=== PATIENT | female | born 1940 ===

== ENCOUNTER → 2021-12-15 14:54 | Outpatient (BNVA) | payer MEDICARE, SELFPAY | PROVIDERS: Family Provider Internal Medicine; PCP Family Medicine; Visit Provider Family Medicine | DX: R17 Unspecified jaundice (principal); E50.9 Vitamin A deficiency, unspecified; I25.10 Atherosclerotic heart disease of native coronary artery without angina pectoris; I10 Essential (primary) hypertension | CPT/HCPCS: 80053; 82306; 83036; 84443 ==

== ENCOUNTER → 2022-01-03 13:54 | Outpatient (BNVA) | payer MEDICARE, SELFPAY | PROVIDERS: Family Provider Internal Medicine; PCP Family Medicine; Visit Provider Internal Medicine Cardiovascular Disease | DX: I25.10 Atherosclerotic heart disease of native coronary artery without angina pectoris (principal); I10 Essential (primary) hypertension; R00.2 Palpitations; E78.00 Pure hypercholesterolemia, unspecified | CPT/HCPCS: 99214 ==

== ENCOUNTER → 2022-04-19 09:24 | Outpatient (BNVA) | payer MEDICARE, SELFPAY | PROVIDERS: Family Provider Internal Medicine; PCP Family Medicine; Visit Provider Family Medicine | DX: E78.00 Pure hypercholesterolemia, unspecified (principal); I10 Essential (primary) hypertension; I25.10 Atherosclerotic heart disease of native coronary artery without angina pectoris; E11.9 Type 2 diabetes mellitus without complications; N39.0 Urinary tract infection, site not specified; R30.0 Dysuria | CPT/HCPCS: 80053; 80061; 81000; 83036; 84443; 85025; 87086 ==

== ENCOUNTER → 2022-07-17 13:31 | Outpatient (BNVA) | payer MEDICARE, SELFPAY | PROVIDERS: Family Provider Internal Medicine; PCP Family Medicine; Visit Provider Internal Medicine Cardiovascular Disease | DX: I25.10 Atherosclerotic heart disease of native coronary artery without angina pectoris (principal); Z95.1 Presence of aortocoronary bypass graft; E78.00 Pure hypercholesterolemia, unspecified; I10 Essential (primary) hypertension; E11.9 Type 2 diabetes mellitus without complications; Z79.84 Long term (current) use of oral hypoglycemic drugs; I44.30 Unspecified atrioventricular block | CPT/HCPCS: 99214 ==

== ENCOUNTER → 2022-08-10 10:31 | Outpatient (BNVA) | payer MEDICARE, SELFPAY | PROVIDERS: Family Provider Internal Medicine; PCP Family Medicine; Visit Provider Family Medicine | DX: E11.9 Type 2 diabetes mellitus without complications (principal); E78.00 Pure hypercholesterolemia, unspecified; I10 Essential (primary) hypertension | CPT/HCPCS: 80053; 80061; 83036; 84443 ==

== ENCOUNTER → 2022-09-20 09:37 | Outpatient (BNVA) | payer MEDICARE, SELFPAY | PROVIDERS: Family Provider Internal Medicine; PCP Family Medicine; Visit Provider Family Medicine | DX: E80.6 Other disorders of bilirubin metabolism (principal); E11.9 Type 2 diabetes mellitus without complications; I10 Essential (primary) hypertension; E55.9 Vitamin D deficiency, unspecified; E78.00 Pure hypercholesterolemia, unspecified; I25.10 Atherosclerotic heart disease of native coronary artery without angina pectoris; Z79.899 Other long term (current) drug therapy | CPT/HCPCS: 80076; 82306 ==

== ENCOUNTER 2022-10-23 14:59 | Outpatient (CLI) | payer MEDICARE, SELFPAY ==
--- NOTE | 2022-10-23 15:15 | US_ITS ---
WS: [id number] ABDOMINAL ULTRASOUND LIMITED REASON FOR EXAM: elevated bilirubin COMPARISON: None available. ORDER DATE: 10/23/2022 3:32 PM TECHNIQUE: Grayscale and Doppler ultrasound examination of the abdomen. FINDINGS: Pancreas: Unremarkable Abdominal aorta and IVC: Unremarkable Liver: Liver measures 15.5 cm in length. Normal echotexture with no evidence of intrahepatic or extra hepatic bile duct dilatation Gallbladder: Gallbladder wall thickness measures 0.2 mm. Somewhat dilated appearing gallbladder witho ut evidence of calculi Right kidney: Right kidney measures 10.2 cm x 4.6 cm x 4.4 cm. Right kidney cortex measures 1.0 cm. N o evidence of calculi or hydronephrosis Portal vein 8 mm in diameter with centripetal flow US/US liver [id number] IMPRESSION: No acute abnormality
== END 2022-10-23 15:00 | disposition home or self-care (01) ==
LOC: RAD 15:00
PROVIDERS: Family Provider Internal Medicine; PCP Family Medicine; Visit Provider Family Medicine
DX: E80.6 Other disorders of bilirubin metabolism (principal)
CPT/HCPCS: 76705

== ENCOUNTER → 2023-03-29 09:21 | Outpatient (BNVA) | payer MEDICARE, SELFPAY | PROVIDERS: Family Provider Internal Medicine; PCP Family Medicine; Visit Provider Family Medicine | DX: E11.9 Type 2 diabetes mellitus without complications (principal); E78.00 Pure hypercholesterolemia, unspecified; I10 Essential (primary) hypertension; I25.10 Atherosclerotic heart disease of native coronary artery without angina pectoris | CPT/HCPCS: 80053; 80061; 83036; 84443 ==

== ENCOUNTER 2023-08-12 13:22 | Emergency (ER) | payer MEDICARE, OTHER, SELFPAY ==
[2023-08-12 13:28] VITALS: BP 137/83; PULSE 96; RESP 16; TEMP 36.7; O2SAT 98; BMI 22.8
--- NOTE | 2023-08-12 13:37 | XRR_ITS ---
PROCEDURE INFORMATION: Exam: XR Chest Exam date and time: 08/12/2023 1:46 PM Age: 82 years old Clinical indication: Other: Weakenss; Prior surgery; Surgery date: 6+ months; Patient HX: Weakness; Dizzy spells; HTN; Diabetes; HX thyroid & cervical CA; Cabg 2005 TECHNIQUE: Imaging protocol: Radiologic exam of the chest. Views: 1 view. COMPARISON: CR XR chest 1V [id number] 07/15/2018 3:04 PM FINDINGS: Lungs: Unremarkable. No consolidation. Pleural spaces: Unremarkable. No pleural effusion. No pneumothorax. Heart/Mediastinum: Prior CABG. Bones/joints: Unremarkable. XR/XR chest 1V portable [id number] IMPRESSION: No acute findings.
--- NOTE | 2023-08-12 13:58 | CTR_ITS ---
PROCEDURE INFORMATION: Exam: CT Head Without Contrast Exam date and time: 08/12/2023 2:07 PM Age: 82 years old Clinical indication: Dizziness TECHNIQUE: Imaging protocol: Computed tomography of the head without contrast. Radiation optimization: All CT scans at this facility use at least one of these dose optimization techniques: automated exposure control; mA and/or kV adjustment per patient size (includes targeted exams where dose is matched to clinical indication); or iterative reconstruction. COMPARISON: CT head wo con* [id number] 07/15/2018 3:10 PM RADIATION DOSE METRICS: Total DLP (mGy-cm): 959.78 FINDINGS: Brain: Normal. No hemorrhage. Unremarkable white matter. No mass effect. Cerebral ventricles: No ventriculomegaly. Mild ventricular prominence proportionate to the degree of atrophy observed. Paranasal sinuses: Visualized sinuses are unremarkable. No fluid levels. Mastoid air cells: Visualized mastoid air cells are well aerated. Bones/joints: Unremarkable. No acute fracture. Soft tissues: Unremarkable. CT/CT head wo con* [id number] IMPRESSION: No acute intracranial abnormality.
--- NOTE | 2023-08-12 13:58 | ED_ITS ---
HPI - Dizziness 2 General: Chief Complaint: Dizziness Stated Complaint: dizziness Time Seen by Provider: 08/12/23 13:57 History of Present Illness: HPI Narrative: 82-year-old female presents emerged depa rtment stating she has been sick for quite some time. She states she is intermittently had loss of bladder states she is felt dizzy and lightheaded and had increased fatigue and weakness. She states that her dizziness does appear to be when she turns her head or attempts to stand. Endorses dysuria. Denies known injury or trauma. Review of Systems 2 General: Reports: 10 or more systems reviewed and unremarkable except in HPI and below : Reports: dysuria, urinary frequency and urinary urgency PFSH ED 2 PFSH: Medical History Atherosclerosis of coronary artery of [place] heart without angina pectoris Benign essential HTN CAD (coronary artery disease) Carotid stenosis COPD (chronic obstructive pulmonary disease) Diabetes Hypercholesterolemia Hyperlipidemia Hypertension Intermittent palpitations Recurrent syncope Thyroid cancer Surgical History H/O neck surgery History of tonsillectomy Hx of CABG Previous back surgery Family History Mother CAD (coronary artery disease) Dementia Father CAD (coronary artery disease) Brother CAD (coronary artery disease) Cancer Sister Cancer Denies family history of Diabetes Clotting disorder Hyperlipidemia Psychiatric illness Chronic kidney disease (CKD) Suicide Anesthesia complication Bleeding disorder Family history of premature coronary artery disease Lung disease Hypertension Stroke Social History Smoking and tobacco/nicotine status: never used tobacco/nicotine Alcohol intake: never Substance/Drug Use: never Physical Exam 2 Narrative: EXAM NARRATIVE: Constitutional: the patient appears well nourished and with normal development. Vital signs reviewed as documented. HENMT: Normocephalic, atraumatic. Extermal ears with normal appearance without drainage. Nose without drainage, normal appearance. Mucus membranes moist. Neck is supple, No jugular venous distension, trachea is midline, no appreciable carotid bruits. No lymphadenopathy. No meningeal signs. Flexion, extension and lateral rotation is without pain. Eyes: Pupils are equal, round, reactive to light and accommodation. No scleral icterus. Extra-ocular movement are intact. Thorax is symmetrical and with equal rise and fall with respirations. Resp: Lungs are clear to auscultation. No wheezes, rales, crackles or ronchi at present. Cardio: Regular rate and rhythm. Positive S1, S2. No appreciable murmurs, rubs or gallops. GI: Abdominal exam reveals normal bowel sounds to all quadrants. No organomegaly. No obvious palpable masses noted. No hepatomegally appreciated. Soft, nontender to palpation. Extremity: Extremities are non-edematous and both femoral and pedal pulses are 2+ and equal bilaterally. Moves all extremities well, sensation in all extremities. Neuro: Alert and oriented x4, person, place, time and situation. Cranial nerves II through XII are grossly intact, there is no focal neurological deficits that I can appreciate at present. Motor strength in the upper and lower extremities are equal and bilateral 5/5. Psych: Cooperative, calm, normal thought process, appropriate judgment. Skin: No lesions, rashes. No gross abnormalities noted. Back: Symmetrical, no obvious deformity, No CVA tenderness Course 2 Vital Signs: Vital signs: Vital Signs Temperature 98.0 F 08/12/23 13:28 Pulse Rate 96 08/12/23 13:28 Respiratory Rate 16 08/12/23 13:28 Blood Pressure 137/83 08/12/23 13:28 Pulse Oximetry 98 08/12/23 13:28 Oxygen Delivery Me thod Room Air 08/12/23 13:28 MDM - Dizziness Medical Decision Making Physical exam completed document, will obtain a CBC, CMP, CT scan of her head provide her Antivert as well as Macrobid for her urinary tract infection. Will obtain cardiac enzymes as well as a twelve-lead EKG and chest x-ray. Differential diagnosis includes dehydration, UTI, benign positional vertigo, orthostatic hypotension, medication side effect, Medical Records I reviewed the patient's medical records. Lab Data I reviewed the patient's lab results. 08/12/23 14:16 08/12/23 14:16 Radiology Impressions Chest X-Ray 08/12/23 13:37 IMPRESSION: No acute findings. Head CT 08/12/23 13:58 IMPRESSION: No acute intracranial abnormality. Laboratory Results WBC 6.06 10^3/uL (3.29-11.43) 08/12/23 14:16 RBC 4.67 10^6/uL (3.85-5.65) 08/12/23 14:16 Hgb 13.60 g/dL (11.27-16.99) 08/12/23 14:16 Hct 40.1 % (36-47) 08/12/23 14:16 MCV 85.9 fl (85-98) 08/12/23 14:16 MCH 29.1 pg (27-33) 08/12/23 14:16 MCHC 33.9 g/dL (30-55) 08/12/23 14:16 RDW 13.0 % (12.1-15.1) 08/12/23 14:16 Plt Count 187 10^3/cmm (157-399) 08/12/23 14:16 MPV 9.0 fL (7.4-10.4) 08/12/23 14:16 Neut % (Auto) 72.3 % 08/12/23 14:16 Lymph % (Auto) 20.5 % 08/12/23 14:16 [place] % (Auto) 4.1 % 08/12/23 14:16 Eos % (Auto) 2.1 % 08/12/23 14:16 Baso % (Auto) 0.7 % 08/12/23 14:16 Neut # (Auto) 4.38 10^3/uL (1.8-7.7) 08/12/23 14:16 Lymph # (Auto) 1.2 10^3/uL (0.8-4.8) 08/12/23 14:16 [place] # (Auto) 0.3 10^3/uL (0.2-0.9) 08/12/23 14:16 Eos # (Auto) 0.1 10^3/uL (0.0-0.8) 08/12/23 14:16 Baso # (Auto) 0.0 10^3/uL (0.0-0.1) 08/12/23 14:16 Nucleated RBC % (auto) 0 % 08/12/23 14:16 Nucleated RBCs # 0.0 /100WBC 08/12/23 14:16 Sodium 133 mmol/L (136-145) L 08/12/23 14:16 Potassium 4.0 mmol/L (3.5-5.1) 08/12/23 14:16 Chloride 97 mmol/L (98-107) L 08/12/23 14:16 Carbon Dioxide 27 mmol/L (22-29) 08/12/23 14:16 Anion Gap 13.0 (5-19) 08/12/23 14:16 BUN 6 mg/dL (8-23) L 08/12/23 14:16 Creatinine 0.6 mg/dL (0.5-0.9) 08/12/23 14:16 GFR Calculation Not Reportable 08/12/23 14:16 Glucose 158 mg/dL (65-115) H 08/12/23 14:16 Calculated Osmolality 277 mOsm/kg (285-295) L 08/12/23 14:16 Calcium 10.8 mg/dL (8.5-10.5) H 08/12/23 14:16 Total Bilirubin 2.6 mg/dL (0.15-1.2) H 08/12/23 14:16 AST 24 U/L (0-32) 08/12/23 14:16 ALT 18 U/L (0-33) 08/12/23 14:16 Alkaline Phosphatase 83 U/L (35-105) 08/12/23 14:16 Total Protein 7.0 g/dL (6.6-8.7) 08/12/23 14:16 Albumin 4.0 g/dL (3.5-5.2) 08/12/23 14:16 Globulin 3.0 g/dL (1.3-4.6) 08/12/23 14:16 Urine Color Yellow (Yellow) 08/12/23 14:28 Urine Appearance Sl hazy (CLEAR) A 08/12/23 14:28 Urine pH 6 (5-7) 08/12/23 14:28 Ur Specific Jakin 1.010 (1.005-1.030) 08/12/23 14:28 Urine Protein Neg (Negative) 08/12/23 14:28 Urine Glucose (UA) Norm (Normal) 08/12/23 14:28 Urine Ketones Negative (Negative) 08/12/23 14:28 Urine Blood Neg (Negative) 08/12/23 14:28 Urine Nitrate Positive (Negative) H 08/12/23 14:28 Urine Bilirubin Neg (Negative) 08/12/23 14:28 Urine Urobilinogen Norm mg/dL (Negative) 08/12/23 14:28 Ur Leukocyte Esterase 2+ (Negative) H 08/12/23 14:28 Urine RBC None /hpf (0-2) 08/12/23 14:28 Urine WBC 25-40 /hpf (0-5) H 08/12/23 14:28 Ur Squamous Epith Cells 5-10 /hpf (0-5) H 08/12/23 14:28 Amorphous Sediment Not Reportable 08/12/23 14:28 Urine Bacteria 2+ /hpf (NONE) H 08/12/23 14:28 All radiology interpretation(s) finalized by discharge EKG Data EKG 1: Interpretation: Twelve-lead EKG obtained at 1421 and reviewed at 1424 demonstrates first-degree AV block with an incomplete right bundle branch block, ventricular rate of 80 bpm, MT interval 319, QRS duration 98, QT 397, QTc 434. There is no ST elevation or depression to demonstrate acute ischemia or infarction at present. Discharge Plan Discharge Patient Disposition: Home Clinical Impression: Postural dizziness with presyncope, Acute UTI Condition: Stable Prescriptions: New nitrofurantoin monohyd/m-cryst [Macrobid] 100 mg capsule 100 mg PO Q12H 7 Days Qty: 14 0RF Rx Instructions: must administer with a meal/food No Action magnesium oxide 400 mg (241.3 mg magnesium) tablet 400 mg PO BEDTIME cholecalciferol (vitamin D3) 2,000 unit tablet 2,000 unit PO QAM aspirin [Adult Low Dose Aspirin] 81 mg tablet,delayed release (DR/EC) 81 mg PO BEDTIME metformin 500 mg tablet 500 mg PO BEDTIME levothyroxine 137 mcg tablet 137 mcg PO QAM atorvastatin 80 mg tablet 80 mg PO BEDTIME clopidogrel 75 mg tablet 75 mg PO QAM amlodipine 5 mg tablet 5 mg PO QAM losartan 100 mg tablet 100 mg PO BEDTIME Discharge Orders: Discharge ED (Routine); Ordered 08/12/23 Ordered By: Jose Miguel Boone Referrals: Rich Bowman MD [Primary Care Provider] - Discharge Diet: Advance as tolerated Discharge Activity: Resume usual activity Patient Instructions: Opioid Safety, Pain Management Activity Restrictions/Additional Instructions: Activity Restrictions/Additional Instructions: Thank you for choosing [facility] for your healthcare needs today. Please realize that you were seen in the Emergency Department and that we are providing you with an emergency medical screening exam and this may not be a complete and all inclusive of all the testing and or medical work-up that you may need to determine your ailment or severity of your illness. It is very important that you follow-up as instructed with your Primary care provider or Specialist for additional evaluation and to discuss your medical treatment plan. You may return to the Emergency Department should you have concerns or if your condition changes or worsens in any way. Coding Level of Care Code ED [facility]idential Lawn Specialist for Onofre Lopez
[2023-08-12] MEDS: meclizine 25 mg tablet PO (14:13)
--- NOTE | 2023-08-12 14:21 | ECG_ITS ---
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 Measurements Intervals [place] Rate: 80 P: 54 CO: 319 QRS: -38 QRSD: 98 T: 71 QT: 397 QTc: 461 Interpretive Statements SINUS RHYTHM WITH FIRST DEGREE AV BLOCK LEFT AXIS DEVIATION [QRS AXIS < -30] INCOMPLETE RIGHT BUNDLE BRANCH BLOCK [90+ ms QRS DURATION, TERMINAL R IN V1/V2, 40+ ms S IN I/aVL/V4/V5/V6] ANTEROSEPTAL MYOCARDIAL INFARCTION , PROBABLY OLD [40+ ms Q WAVE IN V1-V4] Compared to ECG 07/15/2018 23:33:38 Incomplete right bundle-branch block now present Myocardial infarct finding still present Electronically Signed On 08-12-2023 16:22:58 DIRECTOR OF CARDIAC CATH LAB by Curt Ibarra M.D. [email or web address]
[2023-08-12 14:25] LABS: Basophils % 0.7 %; Eosinophils # 0.1 10^3/uL (0.0-0.8); Eosinophils % 2.1 %; Hematocrit 40.1 % (36-47); Lymphocytes # 1.2 10^3/uL (0.8-4.8); Lymphocytes % 20.5 %; Mean Corpuscular HGB Conc 33.9 g/dL (30-55); Mean Corpuscular Hemoglobin 29.1 pg (27-33); Mean Corpuscular Volume 85.9 fl (85-98); Monocytes # 0.3 10^3/uL (0.2-0.9); Monocytes % 4.1 %; Neutrophils # 4.38 10^3/uL (1.8-7.7); Neutrophils % 72.3 %; Nucleated Red Blood Cells % 0 %; Platelet Count 187 10^3/cmm (157-399); Red Blood Count 4.67 10^6/uL (3.85-5.65); White Blood Count 6.06 10^3/uL (3.29-11.43)
--- NOTE | 2023-08-12 14:26 | PC.PHAR ---
pt states she takes care of her own medications-pt states she takes metformin 500mg hs-states she had a build up called [facility] wp states they have never filled metformin for the pt
[2023-08-12 14:45] LABS: Alanine Aminotransferase 18 U/L (0-33); Alkaline Phosphatase 83 U/L (35-105); Aspartate Amino Transferase 24 U/L (0-32); Blood Urea Nitrogen 6 mg/dL (8-23); Calcium 10.8 mg/dL (8.5-10.5); Carbon Dioxide 27 mmol/L (22-29); Chloride 97 mmol/L (98-107); Glucose 158 mg/dL (65-115); Osmolality Calculated 277 mOsm/kg (285-295); Sodium 133 mmol/L (136-145); Total Bilirubin 2.6 mg/dL (0.15-1.2)
[2023-08-12 14:50] LABS: Bilirubin Urine Neg (Negative); Blood Urine Neg (Negative); Glucose Urine UA Norm (Normal); Ketones Urine Negative (Negative); Nitrate Urine Positive (Negative); Protein Urine Neg (Negative); Urine Appearance SL Hazy (CLEAR); Urine Color Yellow (Yellow); pH Urine 6 (5-7)
[2023-08-12 14:51] LABS: Add Urine Culture? Yes; Add Urine Microscopic? YES; Bacteria Urine 2+ /hpf; Leukocyte Esterase Urine 2+ (Negative); Urobilinogen Urine Norm (Negative); WBC Urine 25-40 /hpf (0-5)
[2023-08-12] MEDS: nitrofurantoin SR (BID) 100 mg Capsule PO (15:05)
== END 2023-08-12 16:06 | disposition home or self-care (01) ==
PROVIDERS: Emergency Medicine; Emergency Provider Internal Medicine; PCP Family Medicine
DX: R55 Syncope and collapse (principal); R42 Dizziness and giddiness; N39.0 Urinary tract infection, site not specified; Z79.02 Long term (current) use of antithrombotics/antiplatelets; Z79.82 Long term (current) use of aspirin; Z79.84 Long term (current) use of oral hypoglycemic drugs; Z95.1 Presence of aortocoronary bypass graft; I25.10 Atherosclerotic heart disease of native coronary artery without angina pectoris; I10 Essential (primary) hypertension; J44.9 Chronic obstructive pulmonary disease, unspecified; E11.9 Type 2 diabetes mellitus without complications; E78.5 Hyperlipidemia, unspecified; Z85.850 Personal history of malignant neoplasm of thyroid
CPT/HCPCS: 36415; 70450; 71045; 80053; 81001; 85025; 87077; 87086; 87186; 93005; 99285; J8597

== ENCOUNTER → 2023-12-25 10:12 | Outpatient (BNVA) | payer MEDICARE, OTHER, SELFPAY | PROVIDERS: PCP Family Medicine; Visit Provider Family Medicine | DX: I10 Essential (primary) hypertension (principal); I25.10 Atherosclerotic heart disease of native coronary artery without angina pectoris; E11.9 Type 2 diabetes mellitus without complications; E78.00 Pure hypercholesterolemia, unspecified | CPT/HCPCS: 80053; 80061; 83036; 84443; 85025 ==

== ENCOUNTER → 2023-12-27 14:16 | Outpatient (BNVA) | payer MEDICARE, OTHER, SELFPAY | PROVIDERS: PCP Family Medicine; Visit Provider Internal Medicine Cardiovascular Disease | DX: I25.10 Atherosclerotic heart disease of native coronary artery without angina pectoris (principal); I10 Essential (primary) hypertension; E78.00 Pure hypercholesterolemia, unspecified; E11.9 Type 2 diabetes mellitus without complications; Z79.84 Long term (current) use of oral hypoglycemic drugs | CPT/HCPCS: 99214 ==

== ENCOUNTER → 2024-06-13 11:49 | Outpatient (BNVA) | payer MEDICARE, OTHER, SELFPAY | PROVIDERS: PCP Family Medicine | DX: R39.9 Unspecified symptoms and signs involving the genitourinary system (principal) | CPT/HCPCS: 81000; 87086 ==

== ENCOUNTER → 2024-06-24 10:38 | Outpatient (BNVA) | payer MEDICARE, OTHER, SELFPAY | PROVIDERS: PCP Family Medicine; Visit Provider Family Medicine | DX: I10 Essential (primary) hypertension (principal); I25.10 Atherosclerotic heart disease of native coronary artery without angina pectoris; E78.00 Pure hypercholesterolemia, unspecified; E11.9 Type 2 diabetes mellitus without complications | CPT/HCPCS: 80053; 80061; 83036; 84443; 85025 ==

== ENCOUNTER 2024-09-02 11:02 | Outpatient (CLI) | payer MEDICARE, OTHER, SELFPAY ==
--- NOTE | 2024-09-02 11:07 | XR_ITS ---
WS: [id number] Exam: XR KUB [id number] Date/Time of Exam: 09/02/2024 11:23 AM Reason For Exam: constipation/ RUQ and RLQ abd pain No bowel obstruction or free air. Scattered gas in both large and small bowel loops suggesting mild i leus. Moderate amount retained stool in the large bowel. No sign of organ enlargement. Surgical clips in the upper LEFT quadrant of the abdomen. Degenerative changes of the lumbar spine and hips. XR/XR KUB [id number] IMPRESSION: 1. Mild ileus. 2. Moderate amount retained stool in the colon.
== END 2024-09-02 11:03 | disposition home or self-care (01) ==
LOC: RAD 11:03
PROVIDERS: PCP Family Medicine; Visit Provider Family Medicine
DX: R10.9 Unspecified abdominal pain (principal); K56.7 Ileus, unspecified; K59.00 Constipation, unspecified; M47.9 Spondylosis, unspecified
CPT/HCPCS: 74018

== ENCOUNTER → 2024-11-17 15:37 | Outpatient (BNVA) | payer MEDICARE, OTHER, SELFPAY | PROVIDERS: PCP Family Medicine; Visit Provider Internal Medicine Cardiovascular Disease | DX: I25.10 Atherosclerotic heart disease of native coronary artery without angina pectoris (principal); I10 Essential (primary) hypertension; E78.00 Pure hypercholesterolemia, unspecified; E11.9 Type 2 diabetes mellitus without complications; Z79.84 Long term (current) use of oral hypoglycemic drugs; R00.2 Palpitations | CPT/HCPCS: 99214 ==

== ENCOUNTER → 2025-01-08 08:02 | Outpatient (BNVA) | payer MEDICARE, OTHER, SELFPAY | PROVIDERS: PCP Family Medicine; Visit Provider Family Medicine | DX: I10 Essential (primary) hypertension (principal); E11.9 Type 2 diabetes mellitus without complications; I25.10 Atherosclerotic heart disease of native coronary artery without angina pectoris; E78.00 Pure hypercholesterolemia, unspecified; E55.9 Vitamin D deficiency, unspecified | CPT/HCPCS: 80053; 80061; 82306; 82607; 83036; 83880; 84443; 85025; 86140 ==

== ENCOUNTER → 2025-01-09 08:21 | Outpatient (BNVA) | payer MEDICARE, OTHER, SELFPAY | PROVIDERS: PCP Family Medicine; Visit Provider Family Medicine | DX: R30.0 Dysuria (principal) | CPT/HCPCS: 81000; 87086 ==

== ENCOUNTER → 2025-02-19 15:13 | Outpatient (BNVA) | payer MEDICARE, OTHER, SELFPAY | PROVIDERS: PCP Family Medicine; Visit Provider Family Medicine | DX: I10 Essential (primary) hypertension (principal); C73 Malignant neoplasm of thyroid gland; E80.6 Other disorders of bilirubin metabolism; E83.52 Hypercalcemia | CPT/HCPCS: 82310; 83970; 84432; 84443; 85025; 86140; 86800 ==

== ENCOUNTER → 2025-06-15 16:19 | Outpatient (BNVA) | payer MEDICARE, OTHER, SELFPAY | PROVIDERS: PCP Family Medicine; Visit Provider Family Medicine | DX: R63.4 Abnormal weight loss (principal); I10 Essential (primary) hypertension | CPT/HCPCS: 80053; 84443; 85025; 86140 ==

== ENCOUNTER → 2025-06-16 10:37 | Outpatient (BNVA) | payer MEDICARE, OTHER, SELFPAY | PROVIDERS: PCP Family Medicine; Visit Provider Family Medicine | DX: N30.00 Acute cystitis without hematuria (principal) | CPT/HCPCS: 87086 ==

== ENCOUNTER → 2025-07-09 09:21 | Outpatient (BNVA) | payer MEDICARE, OTHER, SELFPAY | PROVIDERS: PCP Family Medicine; Visit Provider Nurse Practitioner Family | DX: I25.10 Atherosclerotic heart disease of native coronary artery without angina pectoris (principal); R07.89 Other chest pain; R06.00 Dyspnea, unspecified; Z98.890 Other specified postprocedural states; N39.0 Urinary tract infection, site not specified; I10 Essential (primary) hypertension; I44.4 Left anterior fascicular block; I21.29 ST elevation (STEMI) myocardial infarction involving other sites | CPT/HCPCS: 93005; 99214 ==

== ENCOUNTER 2025-07-17 07:18 | Outpatient (CLI) | payer MEDICARE, OTHER, SELFPAY ==
[2025-07-17 07:29] VITALS: BMI 18.2
--- NOTE | 2025-07-17 07:31 | ECG_ITS ---
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 Interpretive Statements Procedure: A total of 0.4 mg of Lexiscan was infused over 20 seconds. The stress phase was continued for a total of 5 minutes. Sestamibi was injected 20 seconds after the Lexiscan infusion. Findings:The patient's baseline blood pressure was 132/61 mmHg with a heart rate of 60 bpm. After Lexiscan injection the patient's blood pressure gradually decreased to 110/59 with a heart rate increased to 75 bpm. Patient had no symptoms of angina during the stress test. Baseline EKG showed sinus bradycardia with a heart rate of 59 bpm, first-degree AV block with a MD interval of 280 ms, left axis deviation and possible old anteroseptal myocardial infarction. There were no ST or T wave changes after Lexiscan injection. Conclusion: 1. Normal EKG response to Lexiscan infusion with no ischemia 2. No Lexiscan induced chest pain or cardiac arrhythmia. 3. Normal blood pressure and heart rate response. 4. Nuclear myocardial perfusion scan pending; see separate report. Electronically Signed On 07-17-2025 18:48:12 SENIOR PROCESS CONTROL TECH by Kendell Penny M.D. [email or web address]
--- NOTE | 2025-07-17 07:31 | NMCV_ITS ---
NM jcarlos perf SPECT r/s* [address] [place], [place] Age: 84 Gender: F : 1940 Exam Date: 07/17/2025 08:49 Ordering Phys: Mariza Bradley Technologist: ERVIN Jimenez Exam Location: [facility] Indications: cp STRESS TEST Please see separate stress test report in [facility] for full findings IMAGE PROTOCOL Rest/Stress 1 Lexiscan Day Radiopharmaceutical Dose (mCi) Administration Site Administered by Rest: Tc-99m 10.7 IV Carolyn Dean, PAYMENT POSTER Sestamibi Stress:Tc-99m 32.5 IV Carolyn Ardongle, PAYMENT POSTER Sestamibi Rest: 17-Jul-2025 60 Discovery 630 Stress: 17-Jul-2025 30 Discovery 630 0.4mg Lexiscan. Supine position only as patient was unable to lay prone. SPECT RESULTS Technical Quality: Good Raw Data Analysis: Normal Image Corrections: No attenuation or motion correction applied Summed Stress Score: 13 Summed Rest Score: 14 Summed Difference Score: 1 PERFUSION FINDINGS There is a medium sized area of mildly reduced tracer counts in the entire inferior wall. Gated images reveal normal motion in this area making the perfusion abnormality appearance more consistent with artifact than infarction. There is no reversible ischemia present. FUNCTIONAL RESULTS (calculated via Gated SPECT) Stress Image LV EF (%): 76 Stress EDV (mL):62 TID: 0.82 Stress ESV (mL):15 FUNCTIONAL FINDINGS: There is normal left ventricular systolic function. IMPRESSIONS 1. Myocardial perfusion imaging consistent with attenuation artifact with no infarction or inducible ischemia. 2. Normal left ventricular systolic function, EF 76%. Kendell Penny MD, FACC (Electronically Signed) Final Date: 17 July 2025 17:24 S
[2025-07-17 09:27] VITALS: BP 110/59; PULSE 58
== END 2025-07-17 07:19 | disposition home or self-care (01) ==
LOC: CDL 07:21
PROVIDERS: PCP Family Medicine; Visit Provider Nurse Practitioner Family
DX: I20.9 Angina pectoris, unspecified (principal); R93.1 Abnormal findings on diagnostic imaging of heart and coronary circulation
CPT/HCPCS: 36415; 78452; 93017; 96374; A9500; J2785